=== PATIENT | male | born 1995 | race African-American/Black ===

== ENCOUNTER 2017-12-09 11:26 | Emergency (ER) | payer SELFPAY ==
[~2017-12-09] VITALS: Ht 167.6 cm; Wt 68.2 kg
[2017-12-09 11:38] VITALS: Ht 167.6 cm; Wt 68.2 kg
[2017-12-09] MEDS ORDERED: TEGRETOL200 MG PO (11:41)
[2017-12-09] MEDS ORDERED: ROBAXIN-750750 MG PO (13:41)
[2017-12-09] MEDS ORDERED: VOLTAREN75 MG PO (13:41)
[2017-12-09 13:53] VITALS: BP 115/078
== END 2017-12-09 13:55 | disposition home or self-care (01) ==
LOC: D.ER 11:26
DX: S16.1XXA Strain of muscle, fascia and tendon at neck level, initial encounter (principal); V49.9XXA Car occupant (driver) (passenger) injured in unspecified traffic accident, initial encounter; Y93.89 Activity, other specified; Y92.410 Unspecified street and highway as the place of occurrence of the external cause

== ENCOUNTER 2019-05-07 12:55 | Emergency (ER) | payer SELFPAY ==
[~2019-05-07] VITALS: Ht 167.6 cm; Wt 54.5 kg
[~2019-05-07 12:55] MED LIST: ROBAXIN-750750 MG PO; TEGRETOL200 MG PO; VOLTAREN75 MG PO
[2019-05-07 13:02] VITALS: Ht 167.6 cm; Wt 54.5 kg
[2019-05-07 13:25] LABS: BASOPHILS 0.2 % (0-2); EOSINOPHILS 0.4 % (0-7); HEMATOCRIT 42.4 % (42.0-54.0); HEMOGLOBIN 14.2 g/dL (13.5-17.5); IMMATURE GRANULOCYTES 1.1 % (0-5); LYMPHOCYTES 16.5 % (15-50); MCHC 33.5 g/dL (31.0-37.0); MCV 89.5 fL (80.0-100.0); MEAN PLATELET VOLUME 8.6 fL (7.4-10.4); MONOCYTES 7.2 % (2-11); NEUTROPHILS 74.6 % (40-80); PLATELET COUNT 210 10x3/uL (130-400); RBC 4.74 10x6/uL (4.20-6.10); RDW 12.8 % (11.5-14.5); WBC 4.7 10x3/uL (4.8-10.8)
[2019-05-07 13:34] LABS: CARBON DIOXIDE 20.1 mmol/L (21.0-32.0); CREATININE - SERUM 1.5 mg/dL (0.6-1.3); POTASSIUM - SERUM 4.1 mmol/L (3.5-5.1)
[2019-05-07 13:42] LABS: ALBUMIN 4.1 g/dL (3.4-5.0); BILIRUBIN - TOTAL 0.11 mg/dL (0.2-1.3); CARBAMAZEPINE (TEGRETOL) 10.3 ug/mL (4.0-12.0); MAGNESIUM - SERUM 2.4 mg/dL (1.8-2.4)
[2019-05-07 14:37] LABS: APPEARANCE CLEAR (CLEAR); BILIRUBIN NEGATIVE (NEGATIVE); COLOR STRAW (YELLOW); GLUCOSE NEGATIVE (NEGATIVE); KETONE NEGATIVE (NEGATIVE); NITRITE NEGATIVE (NEGATIVE); PROTEIN 1+ mg/dL (NEGATIVE); UROBILINOGEN NORMAL (NORMAL)
[2019-05-07 14:42] LABS: BACTERIA FEW /hpf (NEGATIVE); EPITHELIAL CELLS NSEEN /hpf (0-5); RED CELLS - URINE 0-5 /hpf (0-5); SPERMATOZOA 0-5 /hpf (NONE SEEN); WHITE CELLS - URINE 0-5 /hpf (NEGATIVE)
[2019-05-07 14:49] LABS: UDS - AMPHET NEGATIVE QUAL (NEGATIVE); UDS - BARB NEGATIVE QUAL (NEGATIVE); UDS - BENZO NEGATIVE QUAL (NEGATIVE); UDS - COCAINE NEGATIVE QUAL (NEGATIVE); UDS - OPIATE NEGATIVE QUAL (NEGATIVE); UDS - PCP NEGATIVE QUAL (NEGATIVE); UDS - THC NEGATIVE QUAL (NEGATIVE)
[2019-05-07 15:05] VITALS: BP 116/62
== END 2019-05-07 15:08 | disposition home or self-care (01) ==
LOC: D.ER 12:55
PROVIDERS: Family Medicine
DX: G40.909 Epilepsy, unspecified, not intractable, without status epilepticus (principal)

== ENCOUNTER 2019-11-06 18:41 | Emergency (ER) | payer MEDICARE ==
[~2019-11-06] VITALS: Ht 167.6 cm; Wt 63.6 kg
[2019-11-06 18:44] VITALS: Ht 167.6 cm; Wt 63.6 kg
[2019-11-06 19:13] LABS: HEMATOCRIT 46.1 % (42.0-54.0); HEMOGLOBIN 15.2 g/dL (13.5-17.5); LYMPHOCYTES 19.2 % (15-50); MCH 29.3 pg (26.0-34.0); MEAN PLATELET VOLUME 8.6 fL (7.4-10.4); NEUTROPHILS 70.1 % (40-80); RBC 5.18 10x6/uL (4.20-6.10); RDW 12.5 % (11.5-14.5); WBC 6.8 10x3/uL (4.8-10.8)
[2019-11-06 19:14] LABS: PLATELET COUNT 258 10x3/uL (130-400)
[2019-11-06 19:24] LABS: ANION GAP 22.8 mmol/L (8-16); CARBON DIOXIDE 20.1 mmol/L (21.0-32.0); CREATININE - SERUM 1.8 mg/dL (0.6-1.3); POTASSIUM - SERUM 3.9 mmol/L (3.5-5.1)
[2019-11-06 19:38] LABS: ALBUMIN 4.3 g/dL (3.4-5.0); BILIRUBIN - TOTAL 0.26 mg/dL (0.2-1.3); CARBAMAZEPINE (TEGRETOL) 8.1 ug/mL (4.0-12.0); PROTEIN - SERUM 8.6 g/dL (6.4-8.2); THYROID STIMULATING HORMONE 2.4 uIU/mL (0.36-3.74)
[2019-11-06] MEDS ORDERED: ATIVAN1 MG PO (19:56)
[2019-11-06 21:35] VITALS: BP 131/67
== END 2019-11-06 21:35 | disposition home or self-care (01) ==
LOC: D.ER 18:41
PROVIDERS: Emergency Medicine
DX: R56.9 Unspecified convulsions (principal)